=== PATIENT | male | born 1945 | race Caucasian/White ===

== ENCOUNTER → 2017-05-15 | Outpatient (CLI) | payer MEDICARE, BC ==
[~2017-05-15] MED LIST: ASPIR 8181 MG PO; ELIQUIS2.5 MG PO; MISOPROSTOL200 MCG PO; NORCO 10-325 T1 EACH PO; PERCOCET 10-321 EACH PO; PRAVACHOL80 MG PO; SYNTHROID25 MCG PO; VITAMIN B-121000 MCG PO; VITAMIN D1000 UNI1 PO; VOLTAREN EC 7575 MG PO; WELLBUTRIN XL150 MG PO
[2017-05-15 13:29] LABS: BUN/CREATININE RATIO 11 (0-10)
== END ==
LOC: LAB 12:02
PROVIDERS: Orthopaedic Surgery
DX: Z96.652 Presence of left artificial knee joint (principal)
CPT/HCPCS: 36415; 80048; 86850; 86900; 86901

== ENCOUNTER 2017-05-16 05:57 | Inpatient (IN) | payer MEDICARE, BC ==
[~2017-05-16] VITALS: Ht 180.3 cm; Wt 114.8 kg
[2017-05-16] MEDS ORDERED: NORCO 10-325 T1 EACH PO (06:50)
[2017-05-16] MEDS ORDERED: MISOPROSTOL200 MCG PO (06:51)
[2017-05-16] MEDS ORDERED: VOLTAREN EC 7575 MG PO (06:51)
[2017-05-16] MEDS ORDERED: WELLBUTRIN XL150 MG PO (06:52)
[2017-05-16] MEDS ORDERED: SYNTHROID25 MCG PO (06:53)
[2017-05-16] MEDS ORDERED: PRAVACHOL80 MG PO (06:53)
[2017-05-16] MEDS ORDERED: VITAMIN D1000 UNI1 PO (06:54)
[2017-05-16] MEDS ORDERED: ASPIR 8181 MG PO (06:54)
[2017-05-16] MEDS ORDERED: VITAMIN B-121000 MCG PO (06:55)
[2017-05-17 06:05] LABS: HEMOGLOBIN 11.6 gm/dl (14.0-17.5); RED BLOOD COUNT 4.03 M/UL (4.20-5.50); WHITE BLOOD COUNT 8.2 K/UL (4.5-11.0)
[2017-05-17 06:23] LABS: BUN/CREATININE RATIO 10 (0-10)
[2017-05-18 04:43] LABS: HEMOGLOBIN 11.2 gm/dl (14.0-17.5); RED BLOOD COUNT 3.86 M/UL (4.20-5.50); WHITE BLOOD COUNT 9.4 K/UL (4.5-11.0)
[2017-05-18 05:17] LABS: BUN/CREATININE RATIO 11 (0-10)
[2017-05-18] MEDS ORDERED: PERCOCET 10-321 EACH PO (12:39)
[2017-05-18] MEDS ORDERED: ELIQUIS2.5 MG PO (12:41)
--- NOTE | 2017-05-18 15:58 | NUR ---
PATIENT BEING DISCHARGED. IV REMOVED, NO COMPLICATION. REPORT CALLED TO NURSE. DC EDUCATION GIVEN TO PATIENT, PATIENT VERBALIZED UNDERSTANDING.
== END 2017-05-18 16:04 | disposition home health service (06) | DRG 470 ==
LOC: M/S 05:57 → ZOBSOF 05:57 → M/S 13:07
PROVIDERS: ADMIT Orthopaedic Surgery
PROC: 0SRD0J9 Replacement of Left Knee Joint with Synthetic Substitute, Cemented, Open Approach (ICD-10-PCS; principal; 2017-05-16 08:15)
PROC: 3E0234Z Introduction of Serum, Toxoid and Vaccine into Muscle, Percutaneous Approach (ICD-10-PCS; 2017-05-17)
DX: M17.12 Unilateral primary osteoarthritis, left knee (principal); E78.5 Hyperlipidemia, unspecified; I10 Essential (primary) hypertension; M19.90 Unspecified osteoarthritis, unspecified site; M17.11 Unilateral primary osteoarthritis, right knee; E03.9 Hypothyroidism, unspecified; F32.9 Major depressive disorder, single episode, unspecified; E53.8 Deficiency of other specified B group vitamins; E55.9 Vitamin D deficiency, unspecified; M06.9 Rheumatoid arthritis, unspecified; K21.9 Gastro-esophageal reflux disease without esophagitis; J44.9 Chronic obstructive pulmonary disease, unspecified; Z84.89 Family history of other specified conditions; Z83.6 Family history of other diseases of the respiratory system; Z87.11 Personal history of peptic ulcer disease; Z23 Encounter for immunization
CPT/HCPCS: 36415; 73560; 80048; 85025; 97110; 97116; 97530; 97535; C1776; G0008; J0690; J1885; J2250; J2270; J2370; J2405; J2795; J3010; J3370; J7030; J7050; J7120; Q2039

== ENCOUNTER → 2021-04-08 | Outpatient (CLI) | payer MEDICARE ==
[2021-04-08 13:38] LABS: HEMOGLOBIN 14.8 gm/dl (14.0-17.5); WHITE BLOOD COUNT 5.4 K/UL (4.5-11.0)
[2021-04-08 14:07] LABS: BUN/CREATININE RATIO 12 (0-10)
== END ==
LOC: LAB 12:44
PROVIDERS: Physician Assistant
DX: R07.81 Pleurodynia (principal); R05 Cough
CPT/HCPCS: 36415; 71046; 71100; 80048; 80076; 85025

== ENCOUNTER 2022-06-01 06:46 | Emergency (ER) | payer MEDICARE | END 2022-06-01 08:38 | disposition home or self-care (01) | LOC: ER1 06:46 | DX: S61.211A Laceration without foreign body of left index finger without damage to nail, initial encounter (principal); E11.9 Type 2 diabetes mellitus without complications; W26.8XXA Contact with other sharp object(s), not elsewhere classified, initial encounter; Y92.009 Unspecified place in unspecified non-institutional (private) residence as the place of occurrence of the external cause | CPT/HCPCS: 12001; 73130; 99282 ==